=== PATIENT | female | born 1970 | race Caucasian/White ===

== ENCOUNTER 2024-03-30 08:08 | Outpatient (CLI) | payer BC ==
[2024-03-30] MEDS ORDERED: Iopamidol 370 76% 100 ML VIAL ONE (10:18)
== END 2024-03-30 08:09 | disposition home or self-care (01) ==
LOC: CSHCT 08:08
PROVIDERS: ATTEND Internal Medicine Cardiovascular Disease
DX: Q23.81 Bicuspid aortic valve (principal); I77.810 Thoracic aortic ectasia
CPT/HCPCS: 71275